=== PATIENT | male | born 1945 | race Caucasian/White ===

== ENCOUNTER 2019-03-31 09:00 | Outpatient (RCR) | payer OTHER | END 2019-04-04 23:59 | LOC: NEWBEG 09:00 | PROVIDERS: ATTEND Psychiatry & Neurology Psychiatry | DX: F33.1 Major depressive disorder, recurrent, moderate (principal); F01.50 Vascular dementia, unspecified severity, without behavioral disturbance, psychotic disturbance, mood disturbance, and anxiety; F41.9 Anxiety disorder, unspecified | CPT/HCPCS: 90792; 90832; 99214 ==